=== PATIENT | male | born 1945 | race Caucasian/White ===

== ENCOUNTER 2024-12-30 13:00 | Emergency (ER) | payer MEDICARE, SELFPAY ==
[2024-12-30] VITALS (22 sets, daily range): BP systolic 163–205; BP diastolic 72–114; PULSE 44–74; RESP 11–29; TEMP 36.6; O2SAT 87–100; BMI 32.1
--- NOTE | 2024-12-30 13:08 | DI.RAD.S_ITS ---
PROCEDURE: XR KNEE RT 3V INDICATIONS: fall TECHNIQUE: 3 views of the knee were acquired. COMPARISON: None. FINDINGS: Bones: No fractures or dislocations. Mild tricompartmental osteoarthritis is seen. No significant patellar subluxation. No suspicious bony lesions. Soft tissues: No significant joint effusion. No suspicious soft tissue calcifications. IMPRESSION: No acute right knee fracture or dislocation. No significant joint effusion. Mild tricompartmental osteoarthritis. Dictated by: Rick Rodriguez M.D. on 12/30/2024 at 14:00 Approved by: Rick Rodriguez M.D. on 12/30/2024 at 14:00
--- NOTE | 2024-12-30 13:08 | DI.RAD.S_ITS ---
PROCEDURE: XR ANKLE RT MIN 3V INDICATIONS: fall TECHNIQUE: 3 views of the ankle were acquired. COMPARISON: None. FINDINGS: Bones: Acute transverse fracture through base of the medial malleolus with lateral and inferior displacement of fractured fragment. Acute oblique fracture involving distal fibular shaft with dorsal and lateral displacement at fracture site. There is also oblique fracture involving posterior malleolus with slight dorsal displacement of the fractured fragment. Disruption of ankle mortise is seen. No suspicious bony lesion. Soft tissues: Diffuse ankle soft tissue swelling. IMPRESSION: Acute displaced trimalleolar fracture as above. Dictated by: Rick Rodriguez M.D. on 12/30/2024 at 13:50 Approved by: Rick Rodriguez M.D. on 01/09/2025 at 14:16
--- NOTE | 2024-12-30 13:08 | DI.RAD.S_ITS ---
PROCEDURE: XR TIBIA FUBULA RT 2V INDICATIONS: fall TECHNIQUE: 2 views of the tibia and fibula were acquired. COMPARISON: None. FINDINGS: Bones: Displaced trimalleolar fracture of right ankle is seen better evaluated on dedicated ankle radiograph. No proximal to mid tibial or fibular fracture is seen. Soft tissues: No suspicious soft tissue calcifications or masses. IMPRESSION: Acute displaced trimalleolar fracture of right ankle. No proximal to mid lower leg fracture or dislocation. Dictated by: Rick Rodriguez M.D. on 12/30/2024 at 14:00 Approved by: Rick Rodriguez M.D. on 12/30/2024 at 14:03
--- NOTE | 2024-12-30 13:09 | DI.RAD.S_ITS ---
PROCEDURE: XR FOOT RT 2V INDICATIONS: fall TECHNIQUE: To views of the foot were acquired. COMPARISON: None. FINDINGS: Bones: Trimalleolar fracture of the right ankle is seen better evaluated on dedicated ankle radiograph. No acute right foot fracture or dislocation. Osteoarthritic changes are noted in right foot joints. No suspicious bony lesions. Soft tissues: No abnormal soft tissue calcifications. IMPRESSION: Acute displaced trimalleolar ankle fracture. No acute right foot fracture or dislocation. Dictated by: Rick Rodriguez M.D. on 12/30/2024 at 14:03 Approved by: Rick Rodriguez M.D. on 12/30/2024 at 14:04
--- NOTE | 2024-12-30 14:07 | PC.NURSE ---
Pt reports HR in low 40s
[2024-12-30] MEDS: IBUPROFEN 400 MG TABLET 800 MG PO (16:28)
[2024-12-30] MEDS: LACTATED RINGERS 1,000 ML 1000 ML IV (17:46)
[2024-12-30] MEDS: CEFAZOLIN VIAL 1 GM in SODIUM CHLORIDE 0.9% 100 ML IV (17:46)
--- NOTE | 2024-12-31 00:26 | ED.FALL ---
HPI - Fall General Chief Complaint: Fall Stated Complaint: Possible Tib/Fib Fx Time Seen by Provider: 12/30/24 14:15 Source: patient and EMS Mode of arrival: EMS History of Present Illness HPI Narrative: This 79 yo male presents after he fell down a gravelled slope over his right ankle with his full weight. he subsequently had a deformity of his foot which he pulled around and when he arrived his foot looked centered in the splint applied by EMS. Denies other injury,. Believes that his tetanus is current. Visiting from [place]. Related Data Previous Rx's ?Medication ?Instructions ?Recorded oxycodone-acetaminophen 5 mg-325 1 tab PO Q4-6H PRN pain 4 days #14 12/30/24 mg tablet (Percocet) tabs Allergies Allergy/AdvReac Type Severity Reaction Status Date / Time No Known Drug Allergies Allergy Verified 12/30/24 16:50 Review of Systems Constitutional Constitutional: Reports system reviewed and no additional complaints, except as documented Eyes Eyes: Reports system reviewed and no additional complaints, except as documented ENT Ears, Nose, Mouth, and Throat: Reports system reviewed and no additional complaints, except as documented Cardiovascular Cardiovascular: Reports system reviewed and no additional complaints, except as documented Respiratory Respiratory: Reports system reviewed and no additional complaints, except as documented Gastrointestinal Gastrointestinal: Reports system reviewed and no additional complaints, except as documented Musculoskeletal Comments: Swelling and pain right ankle since fall on gravelled slope. Ankle appeared deformed in the field but mor aligned in ER in EMS splint. Neurologic Neurologic: Reports system reviewed and no additional complaints, except as documented Patient History Social History Smoking Status: Former smoker Smoking Status: Former smoker Alcohol type: beer, wine and hard liquor Exam Initial Vital Signs Initial Vital Signs: Vital Signs Temperature 98 F 12/30/24 12:57 Pulse Rate 45 L 12/30/24 12:57 Respiratory Rate 16 12/30/24 12:57 Blood Pressure 164/72 H 12/30/24 12:57 Pulse Oximetry 98 12/30/24 12:57 Oxygen Delivery Method Room Air 12/30/24 12:57 Const General: cooperative Other: tired and uncomfortable. HENMT Head: normal to inspection Eyes General: Yes appearance normal, both eyes and all related structures Neck Neck: normal visual inspection and full ROM Chest Chest: normal inspection of the chest Resp Effort & Inspection: normal respiratory effort Cardio Rate: regular rate Rhythm: regular rhythm GI Inspection: normal to inspection Back/Spine/Pelvis Back: normal to inspection Neuro General: patient alert and patient awake Other: No focal deficits, Extrem Other: Visibly edematous and ecchymotic right ankle, diffusely tender and with no ROM at present.Bleeding abrasion over medial right ankle. NROM of toes of foot and intact N/V distally. no marked tenderness of more proximal lower leg or knee. Course Course Course Narrative: this patient suffered a fall on a gravelled bank and fell with his weight over his right ankle. He suffered what appears to be a trimalleolar ankle fracture with some disruption of the mortise. Discussed with Sonny Ramirez orthopedist and he feels no surgery needs to be done for a week to let the swelling go down . He understands the patient would like to get surgery where his home is in [place]. The patient is visiting [place]. He said an intraarticular block could be used to relocate the ankle if needed before splinting,. The ankle appeared relatively centered in ER and an orthoglass sugar tong and posterior splint was applied by nursing and patient was put on crutches,. sent home with Rx for percocetprn. Given morphine and fluids and Ancef in ER. Told patient to talke to his provider in [place] to get ortho arranged in [facility] area. discharged in stable condition. Orders Ordered: Discontinued Medications Cefazolin Sodium 1 gm/ Sodium (Chloride) 100 mls @ 200 mls/hr IV NOW ONE Stop: 12/30/24 18:02 Last Infusion: 12/30/24 19:33 Dose: Infused Documented By: Admin: 12/30/24 17:46 Dose: 200 mls/hr Documented By: ATA Lactated Ringer's (Lactated Ringers) 1,000 mls @ 1,000 mls/hr IV BOLUS ONE Stop: 12/30/24 18:40 Last Infusion: 12/30/24 19:34 Dose: Infused Documented By: Admin: 12/30/24 17:46 Dose: 1,000 mls/hr Documented By: ATA Ibuprofen (Ibuprofen 400 Mg Tablet) 800 mg PO NOW ONE Stop: 12/30/24 16:26 Last Admin: 12/30/24 16:28 Dose: 800 mg Documented By: ATA Vital Signs Vital signs: Vital Signs - 8 hr 07/29/25 16:30 12/30/24 16:31 12/30/24 16:31 Pulse Rate 61 56 L Respiratory Rate 29 H 11 L Blood Pressure 194/114 H Pulse Oximetry 97 97 Oxygen Delivery Method 12/30/24 17:00 12/30/24 17:01 12/30/24 17:01 Pulse Rate 44 L 48 L Respiratory Rate 14 17 Blood Pressure 196/90 H Pulse Oximetry 97 98 Oxygen Delivery Method 12/30/24 17:30 12/30/24 17:31 12/30/24 17:31 Pulse Rate 49 L 44 L Respiratory Rate 16 21 Blood Pressure 192/85 H Pulse Oximetry 88 L 97 Oxygen Delivery Method 12/30/24 18:00 12/30/24 18:01 12/30/24 18:01 Pulse Rate 45 L 44 L Respiratory Rate 15 11 L Blood Pressure 197/86 H Pulse Oximetry 87 L 91 Oxygen Delivery Method 12/30/24 18:30 12/30/24 18:31 12/30/24 18:31 Pulse Rate 53 L 47 L Respiratory Rate 14 14 Blood Pressure 205/93 H Pulse Oximetry 100 100 Oxygen Delivery Method 12/30/24 19:00 12/30/24 19:01 12/30/24 19:01 Pulse Rate 47 L 47 L Respiratory Rate 15 18 Blood Pressure 163/79 H Pulse Oximetry 97 97 Oxygen Delivery Method Room Air Discharge Plan Departure Patient Disposition: Home Clinical Impression: Closed trimalleolar fracture of ankle Qualifiers: Encounter type: initial encounter Laterality: right Qualified Code(s): S82.851A - Displaced trimalleolar fracture of right lower leg, initial encounter for closed fracture Activity Restrictions/Additional Instructions: Elevate leg when in lodging. Ice to ankle for 15 minutes twice daily next 2 days,. Call primary provider and get them to schedule appointment with ortho in [facility] for trimalleolar ankle fracture. Prescriptions: New oxycodone-acetaminophen [Percocet] 5-325 mg tablet 1 tab PO Q4-6H PRN (Reason: pain) 4 Days Qty: 14 0RF Stand Alone Forms: Patient Portal/API
== END 2024-12-30 19:58 | disposition home or self-care (01) ==
PROVIDERS: Emergency Provider Emergency Medicine
DX: S82.851A Displaced trimalleolar fracture of right lower leg, initial encounter for closed fracture (principal); W18.30XA Fall on same level, unspecified, initial encounter
CPT/HCPCS: 29515; 73562; 73590; 73610; 73620; 96365; 96366; 99284; J0690